=== PATIENT | male | born 1975 | race Caucasian/White ===

== ENCOUNTER 2017-04-25 20:41 | Emergency (ER) | payer BC ==
[2017-04-25 20:55] VITALS: BP 147/103; PULSE 88; TEMP 98.1; BMI 34.4
--- NOTE | 2017-04-25 21:08 | PDOC ---
History of Present Illness - General Chief Complaint: Injury Stated Complaint: LEFT FOOT PAIN Time Seen by Provider: 04/25/17 21:01 - History of Present Illness Initial Comments: This otherwise healthy 41-year-old man presents with an injury to his left foot , sustained this evening. He states that as he was walking his dog earlier this evening, the dog hit the side of his foot. Since then, he has had pain with weightbearing. Patient did not fall and did not turn his ankle or foot. No previous direct trauma to the area although he has had some previous mild discomfort in this foot, tonight's symptom is much more severe. No significant previous medical history. On no medications No known ALLERGIES Patient does not smoke and has no history of alcohol/recreational drug use. Past History - Past Medical History Allergies/Adverse Reactions: Allergies Allergy/AdvReac Type Severity Reaction Status Date / Time No Known Allergies Allergy Verified 04/25/17 20:43 Home Medications: Ambulatory Orders No Home Medications 0 dose .ROUTE UTDICT 05/17/12 Diclofenac Sodium [Voltaren -] 75 mg PO BID PRN #14 tablet. 04/25/17 Oxycodone HCl/Acetaminophen [Percocet 5-325 mg Tablet] 1 tab PO Q6H PRN #10 tablet MDD 2 tabs 04/25/17 Anemia: No Asthma: No Cancer: No Cardiac Disorders: No CVA: No COPD: No CHF: No Dementia: No Diabetes: No GI Disorders: No Disorders: No HTN: No Hypercholesterolemia: No Kidney Stones: Yes Liver Disease: No Seizures: No Thyroid Disease: No - Surgical History Abdominal Surgery: No Appendectomy: No Cardiac Surgery: No Cholecystectomy: No Lung Surgery: No Neurologic Surgery: No Orthopedic Surgery: No - Psycho/Social/Smoking Cessation Hx Anxiety: No Suicidal Ideation: No Smoking Status: No Smoking History: Never smoked Number of Cigarettes Smoked Daily: 0 Hx Alcohol Use: No Drug/Substance Use Hx: No Substance Use Type: None Hx Substance Use Treatment: No Review of Systems - Review of Systems Able to Perform ROS?: Yes Comments:: 12 point review of systems is negative except for what is noted in the history of present illness *Physical Exam - Vital Signs Last Vital Signs Temp Pulse Resp BP Pulse Ox 98.1 F 88 15 147/103 98 04/25/17 20:42 04/25/17 20:42 04/25/17 20:42 04/25/17 20:42 04/25/17 20:42 - Physical Exam Comments: GENERAL: Adult male, alert and oriented 3, in no acute distress EXTREMITIES: Left lower extremitymoderate edema, point tenderness lateral aspect of dorsal midfoot. No deformity/ecchymosis noted; distal foot warm and dry with good capillary refill Extremity exam otherwise normal NEUROLOGICAL: Cranial nerves II through XII grossly intact. Normal speech. No focal neurological deficits. SKIN: Warm, Dry, normal turgor, no rashes or lesions noted. Progress Note - Progress Note Progress Note: Left foot x-ray performed and this patient who has new onset midfoot pain and tenderness after direct trauma to this area while walking his dog. Left foot x-ray shows nondisplaced , horizontal linear fracture of the midshaft , fifth metatarsal. No other fracture/dislocation seen. Results discussed with the patient. Posterior lower leg splint fashioned from Ortho-Glass material and secured with Manan wraps. Neurovascular functioning intact after placement of the splint. Patient will be given crutches for ambulation until seen by orthopedist. Family orthopedist is Dr. Kai Sidhu. Crutch ambulation instruction given. Since the patient works for [employer] and has active job outside (for example, climbing telephone poles, etc.), patient was given work documentation for the next 3 days. He should contact Dr. Sidhu in the interim and follow up for definitive orthopedic care/further instructions regarding work. Diclofenac 75 mg twice a day as needed for [id number] pain transmitted to patient's pharmacy. Percocet 5/325 (#10) to be used up to twice a day for severe pain was also transmitted to patient's pharmacy. *DC/Admit/Observation/Transfer Diagnosis at time of Disposition: Nondisplaced fracture of fifth left metatarsal bone Qualifiers: Encounter type: initial encounter Fracture type: closed Qualified Code(s): S92.355A - Nondisplaced fracture of fifth metatarsal bone, left foot, initial encounter for closed fracture - Discharge Dispostion Disposition: HOME Condition at time of disposition: Stable - Prescriptions Prescriptions: Oxycodone HCl/Acetaminophen [Percocet 5-325 mg Tablet] 1 tab PO Q6H PRN #10 tablet MDD 2 tabs PRN Reason: Severe Pain Diclofenac Sodium [Voltaren -] 75 mg PO BID PRN #14 tablet.dr WALKER Reason: Moderate Pain - Referrals Referrals: Stevan Hairston MD [Primary Care Provider] - Kai Sidhu MD [Staff Physician] - Call tomorrow - Patient Instructions Printed Discharge Instructions: Foot Fracture Additional Instructions: Keep splint in place Elevate/ice to foot for the next 48 hours Crutches for ambulation until seen by orthopedist Call Dr. Sidhu's office tomorrow to arrange follow-up within the next 2-3 days Diclofenac 75 mg twice a day as needed for [id number] pain Percocet 5/325 up to twice a day as needed for severe pain (will make you sleepy ) No work until seen by orthopedist - Post Discharge Activity Work/School Note: Back to Work
== END 2017-04-25 22:58 | disposition home or self-care (01) ==
LOC: FER 20:41
PROC: 2W3VX1Z Immobilization of Left Toe using Splint (ICD-10-PCS; principal; 2017-04-25)
DX: S92.355A Nondisplaced fracture of fifth metatarsal bone, left foot, initial encounter for closed fracture (principal); W22.8XXA Striking against or struck by other objects, initial encounter; Y93.89 Activity, other specified; Y92.9 Unspecified place or not applicable; Z87.442 Personal history of urinary calculi
CPT/HCPCS: 73630-TC-LT; 99281-25

== ENCOUNTER 2018-06-06 12:06 | Emergency (ER) | payer OTHER, BC ==
[2018-06-06 12:14] VITALS: BP 125/81; PULSE 70; TEMP 98.5; BMI 34.4
[2018-06-06] MEDS ORDERED: IBUPROFEN 400 MG TABLET (FP) PO ONE ×2 (12:46→12:48)
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
== END 2018-06-06 12:52 | disposition home or self-care (01) ==
LOC: JERFT 12:06
DX: S16.1XXA Strain of muscle, fascia and tendon at neck level, initial encounter (principal); S39.012A Strain of muscle, fascia and tendon of lower back, initial encounter; V59.49XA Driver of pick-up truck or van injured in collision with other motor vehicles in traffic accident, initial encounter; Y92.414 Local residential or business street as the place of occurrence of the external cause; Y99.0 Civilian activity done for income or pay; Y93.89 Activity, other specified
CPT/HCPCS: 99281-25

== ENCOUNTER 2020-10-12 13:10 | Emergency (ER) | payer BC, OTHER | END 2020-10-12 13:20 | disposition home or self-care (01) | LOC: JVIRT 13:10 | DX: Z11.52 Encounter for screening for COVID-19 (principal) | CPT/HCPCS: C9803; G2012-GT; U0003 ==

== ENCOUNTER 2020-10-15 16:11 | Emergency (ER) | payer BC, OTHER | END 2020-10-15 16:25 | disposition home or self-care (01) | LOC: JVIRT 16:11 | DX: U07.1 COVID-19 (principal) | CPT/HCPCS: C9803; G2012-GT; U0003 ==

== ENCOUNTER 2020-10-16 15:30 | Emergency (ER) | payer BC, OTHER ==
[2020-10-16 15:40] VITALS: BMI 35.5
[2020-10-16] MEDS ORDERED: CASIRIVIMAB (REGN10933) 1,200 MG, IMDEVIMAB (REGN10987) 1,200 MG in SODIUM CHLORIDE 250 ML IVPB ONE (16:14)
[2020-10-16 16:35] LABS: BASO % 0.6 % (0-2.0); EOS % 2.1 % (0-4.5); HEMATOCRIT 43.5 % (35.4-49); HEMOGLOBIN 14.3 GM/dL (11.7-16.9); LYMPH % 37.1 % (8-40); MCH 28.5 pg (25.7-33.7); MCHC 32.8 g/dl (32.0-35.9); MEAN PLT VOLUME 8.2 fl (7.5-11.1); MONO % 13.3 % (3.8-10.2); NEUT % 46.9 % (42.8-82.8); PLATELET COUNT 333 K/MM3 (134-434); RDW 14.5 % (11.9-15.9); WHITE BLOOD COUNT 5.2 K/mm3 (4.0-10.0)
[2020-10-16 16:53] LABS: POTASSIUM 4.6 mmol/L (3.5-5.1)
[2020-10-16 16:56] LABS: ALBUMIN 3.8 g/dl (3.4-5.0)
[2020-10-16 16:59] LABS: CREATININE 1.1 mg/dL (0.55-1.3)
[2020-10-16 17:01] LABS: BILIRUBIN,TOTAL 0.5 mg/dL (0.2-1); TOT PROT 7.6 g/dl (6.4-8.2)
[2020-10-16 20:18] VITALS: BP 126/78; PULSE 68; TEMP 98
== END 2020-10-16 20:18 | disposition home or self-care (01) ==
LOC: JCOVINFU 15:30
DX: U07.1 COVID-19 (principal)
CPT/HCPCS: 36415; 80053; 85025; 99284-25; M0243; Q0243

== ENCOUNTER 2020-10-24 10:40 | Emergency (ER) | payer BC | END 2020-10-24 11:15 | disposition home or self-care (01) | LOC: JVIRT 10:40 | DX: U07.1 COVID-19 (principal) | CPT/HCPCS: 36415; 86769; C9803; Q3014-GT; U0003 ==